=== PATIENT | female | born 1980 | race Caucasian/White ===

== ENCOUNTER 2023-02-13 16:55 | Emergency (ER) | payer OTHER, SELFPAY ==
[2023-02-13 17:14] VITALS: BP 135/85; PULSE 95; RESP 16; TEMP 37.4; O2SAT 99
--- NOTE | 2023-02-13 17:18 | ED.FEMALEGU ---
HPI - Female Genitourinary General Chief complaint: Urogenital-Female Stated complaint: urinary issue Source: patient and RN notes reviewed Mode of arrival: ambulatory Limitations: no limitations History of Present Illness HPI Narrative: 42-year-old female presented for complaint of urinary urgency over the past 2 days. She states she was treated for UTI about 2 weeks ago per telehealth. She had used at home urine dip tests which showed small amount of leuks. Pt was given Macrobid. She states symptoms improved until 2 days ago, and home tests have been negative. denies hematuria, nausea, vomiting, abdominal pain, flank pain, constipation, diarrhea, fevers or chills. Related Data Home Medications Medication Instructions Recorded Confirmed phentermine 15 mg capsule 15 mg PO DAILY 02/13/23 02/13/23 topiramate 50 mg tablet 50 mg PO DAILY 02/13/23 02/13/23 Allergies Allergy/AdvReac Type Severity Reaction Status Date / Time gluten Allergy Unknown Unknown Verified 02/13/23 17:06 Review of Systems Review of Systems: CONSTITUTIONAL: Denies body aches, fever, chills, or sweats. CARDIOVASCULAR: Denies chest pain, palpitations, or edema. RESPIRATORY: Denies cough or dyspnea. GASTROINTESTINAL: Denies abdominal pain, nausea, vomiting, or diarrhea. GENITOURINARY: Reports urgency, denies dysuria, frequency, hematuria, flank pain SKIN: Denies rash, itching, or wounds. MUSCULOSKELETAL: Denies back pain or myalgia. [facility] Past Medical History Medical History (Updated 02/13/23 @ 17:26 by Apple Oden, DANIEL) No pertinent past medical history Comments At time of signature, I have reviewed and agree with nursing past medical, surgical, social and family history unless otherwise noted. Please see nursing chart for further information. There is no relevant family history pertinent to the presenting complaint Exam Narrative: GENERAL: Well-appearing and in no acute distress. ENT: Mucous membranes pink and moist. NECK: Normal AROM. Supple. CHEST: No respiratory distress. Clear to auscultation. HEART: Regular rate and rhythm. ABDOMEN: Soft, nontender, nondistended, normal active bowel sounds. No CVA tenderness SKIN: Warm, dry, no rash. NEURO: No focal deficits. Alert and oriented x3. Gait steady. PSYCH: Normal affect. Course Course Emergency Course: Patient is aware of diagnosis, understands and agrees to treatment plan. Anticipatory guidance given. Patient agrees to follow-up as directed and is aware of reasons to seek care at the emergency department. Portions of this record may have been created with voice recognition software Level of Care: Express Care Visit Vital Signs Vital signs: Vital Signs Temperature 99.4 F 02/13/23 17:14 Pulse Rate 95 02/13/23 17:14 Respiratory Rate 16 02/13/23 17:14 Blood Pressure 135/85 02/13/23 17:14 Pulse Oximetry 99 02/13/23 17:14 Oxygen Delivery Room Air 02/13/23 17:14 Temperature 99.4 F 02/13/23 17:14 Pulse Rate 95 02/13/23 17:14 Respiratory Rate 16 02/13/23 17:14 Blood Pressure 135/85 02/13/23 17:14 Pulse Oximetry 99 02/13/23 17:14 Oxygen Delivery Room Air 02/13/23 17:14 Reviewed MDM - Female Genitourinary MDM Narrative Medical decision making narrative: Discussed physical exam findings and results of urine. will send Macrobid and urine will be cultured. Advised supportive measures and signs/symptoms to go to the ER. Pt is appropriate for outpt treatment and f/u. Differential Diagnosis Differential diagnosis: Likely urinary tract infection, cystitis and other Lab Data Labs: Urine Glucose Negative Reference Range: Negative Urine Bilirubin Negative Reference Range: Negative Urine Ketone Negative Reference Range: N
== END 2023-02-13 17:28 | disposition home or self-care (01) ==
PROVIDERS: Emergency Provider Nurse Practitioner Family
DX: R39.15 Urgency of urination (principal); Z79.899 Other long term (current) drug therapy
CPT/HCPCS: 81003; 87086; 99213; G0463